=== PATIENT | female | born 1930 | race Caucasian/White ===

== ENCOUNTER 2016-11-05 09:18 | Emergency (ER) | payer MEDICARE, BC ==
[2016-11-05] MEDS ORDERED: DEXAMETHASONE SOD PHOSPHATE 4 MG/ML 1 ML VIAL IVP STA (10:57)
--- NOTE | 2016-11-05 10:58 | ED ---
ENT HPI - General Chief complaint: ENT Stated complaint: throat pain Time Seen by Provider: 11/05/16 10:30 Source: patient Mode of arrival: ambulatory Limitations: no limitations - History of Present Illness Initial comments: Patient is an 85 old female presenting with sore throat times one day. Patient' s been trying salt gargles and NyQuil without relief. Patient admits to sick contacts in family. Patient denies fever or chills. Patient admits to postnasal drip. Patient denies change in voice or trouble tolerating secretions or trouble swallowing. Patient is leaving for vacation over the next 3 days and wants to be checked out before she goes to a location without physicians. - Related Data Home Medications Medication Instructions Recorded Confirmed Levothyroxine Sodium 50 mcg PO DAILY 02/05/15 11/05/16 [Levothyroxine Sodium] Loratadine [Claritin] 10 mg PO DAILY 02/05/15 11/05/16 amLODIPine BES/OLMESARTAN MED 1 tab PO DAILY 02/05/15 11/05/16 [Naomy 5-20 mg Tablet] Meloxicam [Mobic] 7.5 mg PO DAILY 11/05/16 11/05/16 Allergies Allergy/AdvReac Type Severity Reaction Status Date / Time aspirin Allergy Rash/Hives Verified 11/05/16 10:05 Penicillins Allergy Rash/Hives Verified 11/05/16 10:05 Review of Systems ROS Statement: Those systems with pertinent positive or pertinent negative responses have been documented in the HPI. Constitutional: No fever and no chills. HENT: No congestion, no rhinorrhea and +sore throat. Eyes: No discharge and no redness. Respiratory: No cough and no shortness of breath. Cardiovascular: No chest pain and no palpitations. Gastrointestinal: No nausea, no vomiting, no abdominal pain and no diarrhea. Genitourinary: No dysuria and no hematuria. Musculoskeletal: No back pain and no arthralgias. Skin: No pallor and no rash. Neurological: No dizziness and No headaches. ROS Other: All systems not noted in ROS Statement are negative. Past Medical History Past Medical History: Hypertension Additional Past Medical History / Comment(s): breast cancer History of Any Multi-Drug Resistant Organisms: None Reported Past Surgical History: Breast Surgery Additional Past Surgical History / Comment(s): mastectomy Past Psychological History: No Psychological Hx Reported Smoking Status: Never smoker Past Alcohol Use History: None Reported Past Drug Use History: None Reported General Exam - General Exam Comments Initial Comments: Constitutional: Patient appears well-developed and well-nourished. No distress. Tolerating secretions. Head: Normocephalic and atraumatic. Eyes: Conjunctivae and EOM are normal. Right eye exhibits no discharge. Left eye exhibits no discharge. No scleral icterus. Neck: Normal range of motion. Neck supple. No cervical lymphadenopathy. Throat: Erythematous posterior pharynx without asymmetry. Uvula midline. Normal phonation of voice. Cardiovascular: Normal rate and regular rhythm. No murmur heard. Pulmonary/Chest: Effort normal and breath sounds normal. No respiratory distress. No wheezes. Abdominal: Soft. No distension. There is no tenderness. There is no rebound and no guarding. Musculoskeletal: Normal range of motion. No edema or tenderness. Neurological: Patient alert and oriented to person, place, and time. Skin: Skin is warm and dry. Not diaphoretic. Nursing notes and vitals reviewed. Limitations: no limitations Course Vital Signs 11/05/16 09:19 Temperature 98.0 F Pulse Rate 88 Respiratory 20 Rate Blood Pressure 152/82 O2 Sat by Pulse 98 Oximetry - Reevaluation(s) Reevaluation #1: 11/05/16 11:00 Patient was offered throat culture for which she is refusing as she does not like the feeling. Patient is agreeable to dexamethasone IM to help with her sore throat. Medical Decision Making - Medical Decision Making Patient's an 85-year-old female presenting with 1 day of sore throat. Exam shows an erythematous posterior pharynx. Patient refusing strep testing. She will be treated with dexamethasone IM and follow-up with her PCP as soon as possible for reevaluation. Prior to discharge, patient was resting comfortably in bed. Course of stay improved and stable for outpatient management. Denies pain. Discussed physical exam with patient. Questions answered and patient is agreeable to discharge with close follow up with Primary Care Physician. Instructed to return to Emergency Department if symptoms worsen. Disposition Clinical Impression: Sore throat Disposition: HOME SELF-CARE Condition: Good Instructions: Strep Throat (ED) Referrals: Shravan Foss MD [Primary Care Provider] - 1-2 days
[2016-11-05 11:12] VITALS: BP 140/79; PULSE 95; RESP 15; TEMP 97.7
[2016-11-05] MEDS ORDERED: DEXAMETHASONE SOD PHOSPHATE 10 MG/ML 1 ML VIAL IM STA (11:30)
== END 2016-11-05 11:34 | disposition home or self-care (01) ==
LOC: EC 09:18
DX: J02.9 Acute pharyngitis, unspecified (principal); I10 Essential (primary) hypertension; Z85.3 Personal history of malignant neoplasm of breast; Z88.0 Allergy status to penicillin; Z88.6 Allergy status to analgesic agent; Z79.1 Long term (current) use of non-steroidal anti-inflammatories (NSAID); Z79.899 Other long term (current) drug therapy
CPT/HCPCS: 99282; 96372; J1100

== ENCOUNTER 2016-12-30 09:19 | Emergency (ER) | payer MEDICARE, BC ==
[2016-12-30 09:26] VITALS: BP 142/68; PULSE 92; RESP 18; TEMP 97.2
--- NOTE | 2016-12-30 09:44 | ED ---
General Adult HPI - General Chief complaint: Eye Problems Stated complaint: eye problem Time Seen by Provider: 12/30/16 09:27 Source: patient, RN notes reviewed Mode of arrival: ambulatory Limitations: no limitations - History of Present Illness Initial comments: Patient 85-year-old female who presents emergency room today with a chief complaint of subconjunctival hemorrhage to the left eye. She states woke up today noticed the blood on the lateral aspect. She states she had this once in the past. She states was told it was due to her ALLERGIES. She states she stopped taking her ALLERGY medication she didn't think she didn't take it anymore. Patient denies any visual changes. She states she can feel some little bit of discomfort to the left upper portion. Denies any other complaints or symptoms. Denies any injury or trauma. Patient denies any recent fever, chills, shortness of breath, chest pain, back pain, abdominal pain, nausea or vomiting, numbness or tingling, dysuria or hematuria, constipation or diarrhea, headaches or visual changes, or any other complaints. - Related Data Home Medications Medication Instructions Recorded Confirmed Levothyroxine Sodium 50 mcg PO DAILY 02/05/15 11/05/16 [Levothyroxine Sodium] Loratadine [Claritin] 10 mg PO DAILY 02/05/15 11/05/16 amLODIPine BES/OLMESARTAN MED 1 tab PO DAILY 02/05/15 11/05/16 [Naomy 5-20 mg Tablet] Meloxicam [Mobic] 7.5 mg PO DAILY 11/05/16 11/05/16 Allergies Allergy/AdvReac Type Severity Reaction Status Date / Time aspirin Allergy Rash/Hives Verified 12/30/16 09:25 Penicillins Allergy Rash/Hives Verified 12/30/16 09:25 Review of Systems ROS Statement: Those systems with pertinent positive or pertinent negative responses have been documented in the HPI. ROS Other: All systems not noted in ROS Statement are negative. Past Medical History Past Medical History: Hypertension, Thyroid Disorder Additional Past Medical History / Comment(s): breast cancer History of Any Multi-Drug Resistant Organisms: None Reported Past Surgical History: Breast Surgery, Joint Replacement Additional Past Surgical History / Comment(s): mastectomy thyroidectomy knee replacement Past Psychological History: No Psychological Hx Reported Smoking Status: Never smoker Past Alcohol Use History: None Reported Past Drug Use History: None Reported General Exam - General Exam Comments Initial Comments: General: The patient is awake and alert, in no distress, and does not appear acutely ill. Eye: Pupils are equal, round and reactive to light, extra-ocular movements are intact. No nystagmus. Right conjunctiva clear. Left conjunctiva does have subconjunctival hemorrhage on the lateral aspect. Small clot seen in the upper portion. Ears, nose, mouth and throat: There are moist mucous membranes and no oral lesions. Neck: The neck is supple, there is no tenderness or JVD. Cardiovascular: There is a regular rate and rhythm. No murmur, rub or gallop is appreciated. Respiratory: Lungs are clear to auscultation, respirations are non-labored, breath sounds are equal. No wheezes, stridor, rales, or rhonchi. Musculoskeletal: Normal ROM, no tenderness. Strength 5/5. Sensation intact. Pulses equal bilaterally 2+. Neurological: A&O x 3. CN II-XII intact, There are no obvious motor or sensory deficits. Coordination appears grossly intact. Speech is normal. Skin: Skin is warm and dry and no rashes or lesions are noted. Psychiatric: Cooperative, appropriate mood & affect, normal judgment. Limitations: no limitations Course Vital Signs 12/30/16 09:23 Temperature 97.2 F L Pulse Rate 92 Respiratory 18 Rate Blood Pressure 142/68 O2 Sat by Pulse 96 Oximetry Medical Decision Making - Medical Decision Making Patient's pressure in the left eye was checked in the emergency room is 12 in the left eye. She does have subconjunctival hemorrhage on the left. Visual acuity chart by nursing staff and is normal for the patient. She denies any changes. Extraocular eye movements are intact and no pain. Patient denies any injury or trauma. Patient will be discharged home advised follow-up with her circuit court judge over the next 2 days return here to emergency room if any symptoms increase or worsen or for any other concerns. Disposition Clinical Impression: Subconjunctival hemorrhage of left eye Disposition: HOME SELF-CARE Condition: Good Instructions: Subconjunctival Hemorrhage (ED) Additional Instructions: Please follow-up with circuit court judge as discussed. Please return to emergency room if the symptoms increase or worsen or for any other concerns. Referrals: Shravan Foss MD [Primary Care Provider] - 1-2 days Garland Wayne MD [STAFF PHYSICIAN] - 1-2 days Time of Disposition: 09:43
== END 2016-12-30 09:50 | disposition home or self-care (01) ==
LOC: EC 09:19
DX: H11.32 Conjunctival hemorrhage, left eye (principal); I10 Essential (primary) hypertension; E07.9 Disorder of thyroid, unspecified; Z79.1 Long term (current) use of non-steroidal anti-inflammatories (NSAID); Z79.899 Other long term (current) drug therapy; Z88.0 Allergy status to penicillin; Z88.6 Allergy status to analgesic agent; Z85.3 Personal history of malignant neoplasm of breast; Z90.10 Acquired absence of unspecified breast and nipple
CPT/HCPCS: 99283

== ENCOUNTER → 2017-01-05 | Outpatient (CLI) | payer BC, MEDICARE ==
[2017-01-05 08:48] LABS: Basophils # (A) 0.1 k/uL (0-0.2); Basophils % (A) 1 %; CH 29.8; CHCM 33.2; Eosinophils # (A) 0.9 k/uL (0-0.7); Eosinophils % (A) 15 %; HCT 43.2 % (34.0-46.0); HDW 2.39; HGB 13.8 gm/dL (11.4-16.0); Luc # (Auto) 0.14; Luc % (Auto) 2; Lymphocytes # (A) 1.3 k/uL (1.0-4.8); Lymphocytes % (A) 22 %; MCHC 32.1 g/dL (31.0-37.0); MCV 90.4 fL (80.0-100.0); Mean Platelet Volume 8.3; Monocytes # (A) 0.3 k/uL (0-1.0); Monocytes % (A) 5 %; Neutrophils # (A) 3.3 k/uL (1.3-7.7); Neutrophils % (A) 55 %; RBC 4.78 m/uL (3.80-5.40); RDW 14.9 % (11.5-15.5); WBC (Perox) 6.08
[2017-01-05 09:03] LABS: Anion Gap 10 mmol/L; Blood Urea Nitrogen 17 mg/dL (7-17); Calcium 8.8 mg/dL (8.4-10.2); Carbon Dioxide 26 mmol/L (22-30); Chloride 105 mmol/L (98-107); Cholesterol 267 mg/dL (<200); Glucose 84 mg/dL (74-99); HDL Cholesterol 64 mg/dL (40-60); Non-African American GFR(MDRD) >60 (>60 ml/min/1.73 sqM); Potassium 4.4 mmol/L (3.5-5.1); Sodium 141 mmol/L (137-145)
== END | disposition home or self-care (01) ==
LOC: LABWHC1 08:24
PROVIDERS: ATTEND Internal Medicine Geriatric Medicine
DX: C50.919 Malignant neoplasm of unspecified site of unspecified female breast (principal); E78.00 Pure hypercholesterolemia, unspecified; E03.9 Hypothyroidism, unspecified
CPT/HCPCS: 36415; 80048; 80061; 84439; 84443; 85025

== ENCOUNTER 2017-02-25 14:33 | Emergency (ER) | payer BC ==
[2017-02-25 14:46] VITALS: BP 146/76; PULSE 116; RESP 18; TEMP 98
[2017-02-25] MEDS ORDERED: MORPHINE SULFATE 4 MG/ML SYRINGE IV STA (14:55)
[2017-02-25] MEDS ORDERED: ONDANSETRON 4 MG/2 ML VIAL IVP STA (14:55)
[2017-02-25] MEDS ORDERED: SODIUM CHLORIDE 0.9% 1,000 ML IV STA (14:55)
[2017-02-25] MEDS ORDERED: PANTOPRAZOLE 40 MG/10 ML VIAL IVP STA (14:55)
[2017-02-25] MEDS ORDERED: LORazepam 2 MG/ML INJ IV STA (14:56)
[2017-02-25 15:26] LABS: Basophils % (A) 1 %; CH 28.4; CHCM 31.9; Eosinophils # (A) 0.1 k/uL (0-0.7); Eosinophils % (A) 3 %; HCT 40.7 % (34.0-46.0); HDW 2.62; HGB 13.2 gm/dL (11.4-16.0); Hypochromasia Slight; Luc # (Auto) 0.17; Luc % (Auto) 3; Lymphocytes # (A) 1.2 k/uL (1.0-4.8); Lymphocytes % (A) 21 %; MCHC 32.5 g/dL (31.0-37.0); MCV 89.4 fL (80.0-100.0); Mean Platelet Volume 7.5; Monocytes # (A) 0.4 k/uL (0-1.0); Monocytes % (A) 7 %; Neutrophils # (A) 3.8 k/uL (1.3-7.7); Neutrophils % (A) 67 %; RBC 4.55 m/uL (3.80-5.40); RDW 13.7 % (11.5-15.5); WBC 5.7 k/uL (3.8-10.6); WBC (Perox) 5.83
[2017-02-25 15:34] LABS: Appearance,Urine Clear (Clear); Bilirubin,Urine Negative (Negative); Glucose,Urine (UA) Negative (Negative); Ketones,Urine Negative (Negative); Leukocyte Esterase,Urine Small (Negative); Mucus,Urine Rare /hpf; Nitrite,Urine Negative (Negative); Particle Count 1537; Protein,Urine Negative (Negative); RBC,Urine 3 /hpf (0-5); Specific Gravity,Urine 1.013 (1.001-1.035); Squamous Epithelial Cell,Urine <1 /hpf (0-4); UA Billing (MACRO vs. MICRO) MICRO; Urobilinogen,Urine <2.0 mg/dL (<2.0); WBC,Urine 4 /hpf (0-5)
[2017-02-25 15:35] LABS: ALT 35 U/L (9-52); AST 28 U/L (14-36); Alkaline Phosphatase 82 U/L (38-126); Amylase 40 U/L (30-110); Anion Gap 12 mmol/L; Blood Urea Nitrogen 13 mg/dL (7-17); Calcium 9.5 mg/dL (8.4-10.2); Carbon Dioxide 22 mmol/L (22-30); Chloride 107 mmol/L (98-107); Glucose 129 mg/dL (74-99); Non-African American GFR(MDRD) >60 (>60 ml/min/1.73 sqM); Sodium 141 mmol/L (137-145); Total Bilirubin 0.3 mg/dL (0.2-1.3); Total Protein 7.1 g/dL (6.3-8.2)
--- NOTE | 2017-02-25 15:49 | ED ---
General Adult HPI - General Chief complaint: Nausea/Vomiting/Diarrhea Stated complaint: High BP Time Seen by Provider: 02/25/17 14:49 Source: patient, RN notes reviewed, old records reviewed Mode of arrival: wheelchair Limitations: no limitations - History of Present Illness Initial comments: This is a 86-year-old female here with nonspecific abdominal pain and nausea. Anxiety. His only recent medical history consists of abdominal pain that she's been suffering with that she had a right knee surgery. Patient denies chest pain no shortness of breath. Patient was taking high doses of pain control for her right knee which has been slowly weaned off. Patient thinks the medication may be causing an issue with her pain. Has been persistent for a couple weeks now patient is at this point just tired of dealing with that she developed resolved by now. She is unable to take significant pain medication at home she is does not like taking pain medication. Denies fevers. No known no vomiting. No history of ulcer disease. - Related Data Home Medications Medication Instructions Recorded Confirmed Loratadine [Claritin] 10 mg PO DAILY 02/05/15 02/25/17 amLODIPine BES/OLMESARTAN MED 1 tab PO HS 02/05/15 02/25/17 [Naomy 5-20 mg Tablet] Meloxicam [Mobic] 7.5 mg PO DAILY 11/05/16 02/25/17 Levothyroxine Sodium [Synthroid] 75 mcg PO DAILY 02/25/17 02/25/17 Allergies Allergy/AdvReac Type Severity Reaction Status Date / Time aspirin Allergy Rash/Hives Verified 02/25/17 14:47 Penicillins Allergy Rash/Hives Verified 02/25/17 14:47 Review of Systems ROS Statement: Those systems with pertinent positive or pertinent negative responses have been documented in the HPI. ROS Other: All systems not noted in ROS Statement are negative. Past Medical History Past Medical History: Cancer, Hypertension, Thyroid Disorder Additional Past Medical History / Comment(s): breast cancer. No BP on left side History of Any Multi-Drug Resistant Organisms: None Reported Past Surgical History: Breast Surgery, Joint Replacement Additional Past Surgical History / Comment(s): mastectomy thyroidectomy knee replacement Past Psychological History: No Psychological Hx Reported Smoking Status: Never smoker Past Alcohol Use History: None Reported Past Drug Use History: None Reported General Exam Limitations: no limitations General appearance: alert, in no apparent distress Head exam: Present: atraumatic, normocephalic, normal inspection Eye exam: Present: normal appearance, PERRL, EOMI. Absent: scleral icterus, conjunctival injection, periorbital swelling ENT exam: Present: normal exam, mucous membranes moist Neck exam: Present: normal inspection. Absent: tenderness, meningismus, lymphadenopathy Respiratory exam: Present: normal lung sounds bilaterally. Absent: respiratory distress, wheezes, rales, rhonchi, stridor Cardiovascular Exam: Present: regular rate, normal rhythm, normal heart sounds. Absent: systolic murmur, diastolic murmur, rubs, gallop, clicks GI/Abdominal exam: Present: soft, normal bowel sounds. Absent: distended, tenderness, guarding, rebound, rigid Extremities exam: Present: normal inspection, full ROM, normal capillary refill. Absent: tenderness, pedal edema, joint swelling, calf tenderness Back exam: Present: normal inspection Neurological exam: Present: alert, oriented X3, CN II-XII intact Psychiatric exam: Present: normal affect, normal mood Skin exam: Present: warm, dry, intact, normal color. Absent: rash Course Vital Signs 02/25/17 14:44 Temperature 98 F Pulse Rate 116 H Respiratory 18 Rate Blood Pressure 146/76 O2 Sat by Pulse 97 Oximetry - Reevaluation(s) Reevaluation #1: 02/25/17 15:48 Symptoms at this point are much improved Medical Decision Making - Medical Decision Making 86 female to the ER with predominant anxiety, abdominal pain. Patient actually lab work is normal. Symptoms have been persistent ever since surgery but no shortness of breath or chest pain. Patient symptoms are improved here in the emergency room with anxiolysis, patient can be discharged home - Lab Data Result diagrams: 02/25/17 15:10 02/25/17 15:10 Lab Results 02/25/17 02/25/17 02/25/17 Range/Units 15:10 15:10 15:10 WBC 5.7 (3.8-10.6) k/uL RBC 4.55 (3.80-5.40) m/uL Hgb 13.2 (11.4-16.0) gm/dL Hct 40.7 (34.0-46.0) % MCV 89.4 (80.0-100.0) fL MCH 29.0 (25.0-35.0) pg MCHC 32.5 (31.0-37.0) g/dL RDW 13.7 (11.5-15.5) % Plt Count 273 (150-450) k/uL Neutrophils % 67 % Lymphocytes % 21 % Monocytes % 7 % Eosinophils % 3 % Basophils % 1 % Neutrophils # 3.8 (1.3-7.7) k/uL Lymphocytes # 1.2 (1.0-4.8) k/uL Monocytes # 0.4 (0-1.0) k/uL Eosinophils # 0.1 (0-0.7) k/uL Basophils # 0.0 (0-0.2) k/uL Hypochromasia Slight Sodium 141 (137-145) mmol/L Potassium 4.0 (3.5-5.1) mmol/L Chloride 107 (98-107) mmol/L Carbon Dioxide 22 (22-30) mmol/L Anion Gap 12 mmol/L BUN 13 (7-17) mg/dL Creatinine 0.66 (0.52-1.04) mg/dL Est GFR (MDRD) Af Amer >60 (>60 ml/min/1.73 sqM) Est GFR (MDRD) Non-Af >60 (>60 ml/min/1.73 sqM) Glucose 129 H (74-99) mg/dL Plasma Lactic Acid Severiano 1.3 (0.7-2.0) mmol/L Calcium 9.5 (8.4-10.2) mg/dL Total Bilirubin 0.3 (0.2-1.3) mg/dL AST 28 (14-36) U/L ALT 35 (9-52) U/L Alkaline Phosphatase 82 (38-126) U/L Total Protein 7.1 (6.3-8.2) g/dL Albumin 4.4 (3.5-5.0) g/dL Amylase 40 (30-110) U/L Lipase 61 (23-300) U/L Urine Color Urine Appearance (Clear) Urine pH (5.0-8.0) Ur Specific [place] (1.001-1.035) Urine Protein (Negative) Urine Glucose (UA) (Negative) Urine Ketones (Negative) Urine Blood (Negative) Urine Nitrite (Negative) Urine Bilirubin (Negative) Urine Urobilinogen (<2.0) mg/dL Ur Leukocyte Esterase (Negative) Urine RBC (0-5) /hpf Urine WBC (0-5) /hpf Ur Squamous Epith Cells (0-4) /hpf Urine Mucus (None) /hpf 02/25/17 Range/Units 15:20 WBC (3.8-10.6) k/uL RBC (3.80-5.40) m/uL Hgb (11.4-16.0) gm/dL Hct (34.0-46.0) % MCV (80.0-100.0) fL MCH (25.0-35.0) pg MCHC (31.0-37.0) g/dL RDW (11.5-15.5) % Plt Count (150-450) k/uL Neutrophils % % Lymphocytes % % Monocytes % % Eosinophils % % Basophils % % Neutrophils # (1.3-7.7) k/uL Lymphocytes # (1.0-4.8) k/uL Monocytes # (0-1.0) k/uL Eosinophils # (0-0.7) k/uL Basophils # (0-0.2) k/uL Hypochromasia Sodium (137-145) mmol/L Potassium (3.5-5.1) mmol/L Chloride (98-107) mmol/L Carbon Dioxide (22-30) mmol/L Anion Gap mmol/L BUN (7-17) mg/dL Creatinine (0.52-1.04) mg/dL Est GFR (MDRD) Af Amer (>60 ml/min/1.73 sqM) Est GFR (MDRD) Non-Af (>60 ml/min/1.73 sqM) Glucose (74-99) mg/dL Plasma Lactic Acid Severiano (0.7-2.0) mmol/L Calcium (8.4-10.2) mg/dL Total Bilirubin (0.2-1.3) mg/dL AST (14-36) U/L ALT (9-52) U/L Alkaline Phosphatase (38-126) U/L Total Protein (6.3-8.2) g/dL Albumin (3.5-5.0) g/dL Amylase (30-110) U/L Lipase (23-300) U/L Urine Color Yellow Urine Appearance Clear (Clear) Urine pH 6.0 (5.0-8.0) Ur Specific [place] 1.013 (1.001-1.035) Urine Protein Negative (Negative) Urine Glucose (UA) Negative (Negative) Urine Ketones Negative (Negative) Urine Blood Small H (Negative) Urine Nitrite Negative (Negative) Urine Bilirubin Negative (Negative) Urine Urobilinogen <2.0 (<2.0) mg/dL Ur Leukocyte Esterase Small H (Negative) Urine RBC 3 (0-5) /hpf Urine WBC 4 (0-5) /hpf Ur Squamous Epith Cells <1 (0-4) /hpf Urine Mucus Rare H (None) /hpf - Radiology Data Radiology results: report reviewed (X-ray abdominal series and chest is negative for acute disease), image reviewed Disposition Clinical Impression: Anxiety, Abdominal pain Disposition: TRANSFER TO PSYCH HOSP/UNIT Condition: Good Instructions: Abdominal Pain (ED) Referrals: Shravan Foss MD [Primary Care Provider] - 1-2 days
--- NOTE | 2017-02-25 15:51 | XR ---
EXAMINATION TYPE: XR abdomen acute w cxr DATE OF EXAM: 02/25/2017 COMPARISON: NONE HISTORY: Abdominal pain TECHNIQUE: 3 views FINDINGS: There is no heart failure nor confluent pneumonic infiltrate. There is slight coarsening of markings at the lung bases. There is scoliotic deformity in the thoracic and lumbar spine. There is no sign of intestinal obstruction or pneumoperitoneum. Fecal pattern is normal. There are no pathologic calcifications over the kidneys. IMPRESSION: Mild fibrotic changes at the lung bases. No heart failure. Scoliotic deformity. Nonacute abdomen.
== END 2017-02-25 16:11 | disposition home or self-care (01) ==
LOC: EC 14:33
DX: R10.9 Unspecified abdominal pain (principal); F41.9 Anxiety disorder, unspecified; R11.2 Nausea with vomiting, unspecified; R19.7 Diarrhea, unspecified; I10 Essential (primary) hypertension; E07.9 Disorder of thyroid, unspecified; Z79.1 Long term (current) use of non-steroidal anti-inflammatories (NSAID); Z79.899 Other long term (current) drug therapy; Z88.0 Allergy status to penicillin; Z88.6 Allergy status to analgesic agent; Z85.3 Personal history of malignant neoplasm of breast; Z90.10 Acquired absence of unspecified breast and nipple
CPT/HCPCS: 96375 ×4; 96361 ×2; 96374 ×2; 99284 ×2; 36415; 80053; 82150; 83605; 83690; 85025; 81001; 87086; 74022; J2060; J2270; J2405; C9113

== ENCOUNTER 2017-03-04 04:21 | Emergency (ER) | payer BC, MEDICARE ==
[2017-03-04 04:28] VITALS: RESP 16
[2017-03-04] MEDS ORDERED: SODIUM CHLORIDE 0.9% 1,000 ML IV STA (04:32)
[2017-03-04] MEDS ORDERED: DIPHENOX-ATROP 2.5-0.025 MG 1 EACH TAB PO STA (04:32)
--- NOTE | 2017-03-04 04:36 | ED ---
General Adult HPI - General Chief complaint: Abdominal Pain Stated complaint: Abdominal Pain Time Seen by Provider: 03/04/17 04:25 Source: patient, RN notes reviewed Mode of arrival: wheelchair Limitations: no limitations - History of Present Illness Initial comments: This is an 86-year-old female preand continues to have it currently. Patient states she also has abdominal cramping. Patient states she quit taking oxycodone cold turkey last Sunday after having been on it for quite a while. Patient states after that she had diarrhea and was in the hospital on Sunday. Patient states since then she has been feeling a little bit better and not much diarrhea but yesterday it started up again at 10 PM. Patient denies any fever chills. Patient denies nausea or vomiting. Patient denies chest pain palpitations difficulty breathing or shortness of breath. - Related Data Home Medications Medication Instructions Recorded Confirmed Loratadine [Claritin] 10 mg PO DAILY 02/05/15 02/25/17 amLODIPine BES/OLMESARTAN MED 1 tab PO HS 02/05/15 02/25/17 [Naomy 5-20 mg Tablet] Meloxicam [Mobic] 7.5 mg PO DAILY 11/05/16 02/25/17 Levothyroxine Sodium [Synthroid] 75 mcg PO DAILY 02/25/17 02/25/17 Previous Rx's Medication Instructions Recorded Diazepam [Valium] 5 mg PO TID PRN #10 tab 02/25/17 Ondansetron [Zofran] 4 mg PO Q8HR PRN #30 tab 02/25/17 traMADol HCL [Ultram] 50 mg PO Q6HR PRN #30 tab 02/25/17 Allergies Allergy/AdvReac Type Severity Reaction Status Date / Time aspirin Allergy Rash/Hives Verified 03/04/17 04:28 Penicillins Allergy Rash/Hives Verified 03/04/17 04:28 Review of Systems ROS Statement: Those systems with pertinent positive or pertinent negative responses have been documented in the HPI. ROS Other: All systems not noted in ROS Statement are negative. Past Medical History Past Medical History: Cancer, Hypertension, Thyroid Disorder Additional Past Medical History / Comment(s): breast cancer. No BP on left side History of Any Multi-Drug Resistant Organisms: None Reported Past Surgical History: Breast Surgery, Joint Replacement Additional Past Surgical History / Comment(s): mastectomy thyroidectomy bilateral knee replacement Past Psychological History: No Psychological Hx Reported Smoking Status: Never smoker Past Alcohol Use History: None Reported Past Drug Use History: None Reported General Exam - General Exam Comments Initial Comments: GENERAL: Patient is well-developed and well-nourished. Patient is nontoxic and well- hydrated and is in mild distress. ENT: Neck is soft and supple. No significant lymphadenopathy is noted. Oropharynx is clear. Moist mucous membranes. Neck has full range of motion without eliciting any pain. EYES: The sclera were anicteric and conjunctiva were pink and moist. Extraocular movements were intact and pupils were equal round and reactive to light. Eyelids were unremarkable. PULMONARY: Unlabored respirations. Good breath sounds bilaterally. No audible rales rhonchi or wheezing was noted. CARDIOVASCULAR: There is a regular rate and rhythm without any murmurs gallops or rubs. ABDOMEN: Soft and nontender with normal bowel sounds. No palpable organomegaly was noted. There is no palpable pulsatile mass. SKIN: Skin is clear with no lesions or rashes and otherwise unremarkable. NEUROLOGIC: Patient is alert and oriented x3. Cranial nerves II through XII are grossly intact. Motor and sensory are also intact. Normal speech, volume and content. Symmetrical smile. MUSCULOSKELETAL: Normal extremities with adequate strength and full range of motion. LYMPHATICS: No significant lymphadenopathy is noted PSYCHIATRIC: Normal psychiatric evaluation. Normal interpersonal interactions appears functionally intact in deals appropriately with others. No signs of depression. No signs of anxiety. Limitations: no limitations Course Vital Signs 03/04/17 04:25 Temperature 99 F Pulse Rate 105 H Respiratory 16 Rate Blood Pressure 172/75 O2 Sat by Pulse 98 Oximetry Medical Decision Making - Medical Decision Making Patient has had no diarrhea while being in the emergency department. Patient states she feels considerably better and still has some abdominal cramping - Lab Data Result diagrams: 03/04/17 04:30 03/04/17 04:30 Lab Results 03/04/17 03/04/17 03/04/17 Range/Units 04:30 04:30 05:20 WBC 8.4 (3.8-10.6) k/uL RBC 4.67 (3.80-5.40) m/uL Hgb 13.0 (11.4-16.0) gm/dL Hct 40.8 (34.0-46.0) % MCV 87.4 (80.0-100.0) fL MCH 27.9 (25.0-35.0) pg MCHC 31.9 (31.0-37.0) g/dL RDW 13.3 (11.5-15.5) % Plt Count 260 (150-450) k/uL Neutrophils % 72 % Lymphocytes % 16 % Monocytes % 5 % Eosinophils % 4 % Basophils % 0 % Neutrophils # 6.1 (1.3-7.7) k/uL Lymphocytes # 1.4 (1.0-4.8) k/uL Monocytes # 0.5 (0-1.0) k/uL Eosinophils # 0.3 (0-0.7) k/uL Basophils # 0.0 (0-0.2) k/uL Sodium 139 (137-145) mmol/L Potassium 4.3 (3.5-5.1) mmol/L Chloride 107 (98-107) mmol/L Carbon Dioxide 19 L (22-30) mmol/L Anion Gap 13 mmol/L BUN 17 (7-17) mg/dL Creatinine 0.60 (0.52-1.04) mg/dL Est GFR (MDRD) Af Amer >60 (>60 ml/min/1.73 sqM) Est GFR (MDRD) Non-Af >60 (>60 ml/min/1.73 sqM) Glucose 124 H (74-99) mg/dL Calcium 9.3 (8.4-10.2) mg/dL Total Bilirubin 0.4 (0.2-1.3) mg/dL AST 27 (14-36) U/L ALT 36 (9-52) U/L Alkaline Phosphatase 106 (38-126) U/L Total Protein 6.7 (6.3-8.2) g/dL Albumin 4.2 (3.5-5.0) g/dL Amylase 75 (30-110) U/L Lipase 131 (23-300) U/L Urine Color Colorless Urine Appearance Clear (Clear) Urine pH 6.0 (5.0-8.0) Ur Specific [place] 1.004 (1.001-1.035) Urine Protein Negative (Negative) Urine Glucose (UA) Negative (Negative) Urine Ketones Negative (Negative) Urine Blood Negative (Negative) Urine Nitrite Negative (Negative) Urine Bilirubin Negative (Negative) Urine Urobilinogen <2.0 (<2.0) mg/dL Ur Leukocyte Esterase Negative (Negative) Disposition Clinical Impression: Diarrhea, Abdominal cramping Disposition: HOME SELF-CARE Condition: Good Instructions: Acute Diarrhea (ED) Referrals: Shravan Foss MD [Primary Care Provider] - 1-2 days Time of Disposition: 06:01
[2017-03-04 04:44] LABS: Basophils % (A) 0 %; CH 28.1; CHCM 32.3; Eosinophils # (A) 0.3 k/uL (0-0.7); Eosinophils % (A) 4 %; HCT 40.8 % (34.0-46.0); HDW 2.67; Luc # (Auto) 0.23; Luc % (Auto) 3; Lymphocytes # (A) 1.4 k/uL (1.0-4.8); Lymphocytes % (A) 16 %; MCH 27.9 pg (25.0-35.0); MCHC 31.9 g/dL (31.0-37.0); MCV 87.4 fL (80.0-100.0); Mean Platelet Volume 7.6; Monocytes # (A) 0.5 k/uL (0-1.0); Monocytes % (A) 5 %; Neutrophils # (A) 6.1 k/uL (1.3-7.7); Neutrophils % (A) 72 %; RBC 4.67 m/uL (3.80-5.40); RDW 13.3 % (11.5-15.5); WBC 8.4 k/uL (3.8-10.6); WBC (Perox) 8.15
[2017-03-04 05:00] LABS: ALT 36 U/L (9-52); AST 27 U/L (14-36); Alkaline Phosphatase 106 U/L (38-126); Amylase 75 U/L (30-110); Anion Gap 13 mmol/L; Blood Urea Nitrogen 17 mg/dL (7-17); Calcium 9.3 mg/dL (8.4-10.2); Carbon Dioxide 19 mmol/L (22-30); Chloride 107 mmol/L (98-107); Glucose 124 mg/dL (74-99); Non-African American GFR(MDRD) >60 (>60 ml/min/1.73 sqM); Potassium 4.3 mmol/L (3.5-5.1); Sodium 139 mmol/L (137-145); Total Bilirubin 0.4 mg/dL (0.2-1.3); Total Protein 6.7 g/dL (6.3-8.2)
--- NOTE | 2017-03-04 05:27 | XR ---
EXAM: XR Abdomen Complete, 2 or More Views CLINICAL HISTORY: Reason: abdominal pain TECHNIQUE: Frontal view of the abdomen/pelvis with upright view of the abdomen. COMPARISON: 02/25/17 FINDINGS: Lower thorax: Probable bibasilar atelectasis. Intraperitoneal space: No free air on the upright view. Gastrointestinal tract: Paucity of bowel gas pattern. Fluid-filled dilated small bowel loops difficult to exclude. Air in the rectosigmoid region. Bones/joints: Scoliosis and degenerative changes in the visualized thoracic and lumbar spine, unchanged. IMPRESSION: No definite bowel obstruction or free air Overall paucity of bowel gas, nonspecific No significant change
[2017-03-04 05:46] LABS: Appearance,Urine Clear (Clear); Bilirubin,Urine Negative (Negative); Glucose,Urine (UA) Negative (Negative); Ketones,Urine Negative (Negative); Leukocyte Esterase,Urine Negative (Negative); Nitrite,Urine Negative (Negative); Protein,Urine Negative (Negative); Specific Gravity,Urine 1.004 (1.001-1.035); UA Billing (MACRO vs. MICRO) CHEM; Urobilinogen,Urine <2.0 mg/dL (<2.0)
[2017-03-04] MEDS ORDERED: DICYCLOMINE 10 MG/ML 2 ML AMP IM STA (06:00)
[2017-03-04] MEDS ORDERED: DIPHENOX-ATROP STARTER PACK 8 TAB BTL PO STA (06:01)
[2017-03-04 06:13] VITALS: BP 118/79; PULSE 66; TEMP 97.9
== END 2017-03-04 06:12 | disposition home or self-care (01) ==
LOC: EC 04:21
DX: R10.9 Unspecified abdominal pain (principal); R19.7 Diarrhea, unspecified; I10 Essential (primary) hypertension; E89.0 Postprocedural hypothyroidism; Z85.3 Personal history of malignant neoplasm of breast; Z88.0 Allergy status to penicillin; Z88.6 Allergy status to analgesic agent; Z79.899 Other long term (current) drug therapy
CPT/HCPCS: 99284 ×2; 96360 ×2; 96372 ×2; 36415; 80053; 82150; 83690; 85025; 81003; 74000; J0500

== ENCOUNTER 2017-10-19 19:51 | Emergency (ER) | payer MEDICARE, BC ==
--- NOTE | 2017-10-19 20:56 | XR ---
EXAMINATION TYPE: XR chest 2V DATE OF EXAM: 10/19/2017 COMPARISON: Chest x-ray February 25, 2017 HISTORY: Cough and sore throat and congestion. TECHNIQUE: Frontal and lateral views of the chest are obtained. FINDINGS: There is some chronic parenchymal change without suspicious focal air space opacity, pleur al effusion, or pneumothorax seen. The cardiac silhouette size remains within normal limits with ath erosclerotic and ectatic aorta. The osseous structures remain demineralized. Underlying S-shaped sc oliosis is redemonstrated IMPRESSION: Chronic changes without acute pulmonary process.
--- NOTE | 2017-10-19 21:42 | ED ---
URI HPI - General Chief Complaint: Upper Respiratory Infection Stated Complaint: Chest Congestion Time Seen by Provider: 10/19/17 21:00 Source: patient Mode of arrival: ambulatory Limitations: no limitations - History of Present Illness Initial Comments: This patient is an 86-year-old woman who presents to be evaluated for a constellation of symptoms that began 3 days ago with some sinus congestion and postnasal drip, followed by developing a sore throat, and then starting today in the afternoon a nonproductive cough. The patient also reports having had some low-grade temperature. She was concerned because her had recently been in the hospital and was put on an antibiotic after he developed a cough. The patient denies any purulent sputum. She is not having shortness of breath. The remainder the review of systems is negative. MD Complaint: cough, sore throat, nasal congestion -: days(s) Severity: moderate Quality: dull Consistency: constant Improves With: nothing Worsens With: other (Cough) Context: sick contacts Associated Symptoms: fever, nasal congestion, sore throat, cough Treatments Prior to Arrival: none - Related Data Home Medications Medication Instructions Recorded Confirmed amLODIPine BES/OLMESARTAN MED 1 tab PO HS 02/05/15 10/19/17 [Naomy 5-20 mg Tablet] Levothyroxine Sodium [Synthroid] 75 mcg PO DAILY 02/25/17 10/19/17 Previous Rx's Medication Instructions Recorded Promethazine 6.25MG/5Ml [Phenergan 5 ml PO Q4HR PRN #120 ml 10/19/17 Syrup] predniSONE 60 mg PO DAILY #30 tab 10/19/17 Allergies Allergy/AdvReac Type Severity Reaction Status Date / Time aspirin Allergy Rash/Hives Verified 10/19/17 20:23 Penicillins Allergy Rash/Hives Verified 10/19/17 20:23 Review of Systems ROS Statement: Those systems with pertinent positive or pertinent negative responses have been documented in the HPI. ROS Other: All systems not noted in ROS Statement are negative. Constitutional: Reports: fever. Denies: chills, weakness ENT: Reports: throat pain, congestion. Denies: ear pain Respiratory: Reports: cough. Denies: dyspnea, hemoptysis Cardiovascular: Denies: chest pain, palpitations, dyspnea on exertion, edema, syncope Gastrointestinal: Denies: abdominal pain, vomiting, diarrhea Genitourinary: Denies: dysuria Musculoskeletal: Denies: back pain Skin: Denies: rash Neurological: Denies: headache, weakness Past Medical History Past Medical History: Cancer, Hypertension, Thyroid Disorder Additional Past Medical History / Comment(s): breast cancer. No BP on left side, History of Any Multi-Drug Resistant Organisms: None Reported Past Surgical History: Breast Surgery, Joint Replacement Additional Past Surgical History / Comment(s): mastectomy thyroidectomy bilateral knee replacement, left hammer toe correction Past Psychological History: No Psychological Hx Reported Smoking Status: Never smoker Past Alcohol Use History: None Reported Past Drug Use History: None Reported General Exam Limitations: no limitations General appearance: alert, in no apparent distress ENT exam: Present: mucous membranes moist, other (There is mild injection of the pharynx) Neck exam: Present: normal inspection, full ROM Respiratory exam: Present: wheezes (Trace expiratory wheeze). Absent: respiratory distress, rales, rhonchi, stridor Cardiovascular Exam: Present: regular rate (Heart rate is 100 at my exam), normal rhythm, normal heart sounds. Absent: systolic murmur, diastolic murmur, rubs, gallop GI/Abdominal exam: Present: soft. Absent: distended, tenderness, guarding, rebound, rigid, mass Extremities exam: Present: normal inspection, normal capillary refill. Absent: pedal edema, calf tenderness Back exam: Present: normal inspection. Absent: CVA tenderness (R), CVA tenderness (L) Neurological exam: Present: alert Skin exam: Present: warm, dry, intact, normal color. Absent: rash Course Vital Signs 10/19/17 10/19/17 10/19/17 20:01 20:38 22:08 Temperature 100.1 F H 98.7 F Pulse Rate 117 H 99 Respiratory 18 20 18 Rate Blood Pressure 134/72 164/79 O2 Sat by Pulse 96 95 Oximetry Medical Decision Making - Lab Data Lab Results 10/19/17 Range/Units 21:08 Group A Strep Rapid Negative (Negative) - EKG Data -: EKG Interpreted by Me EKG shows normal: sinus rhythm, axis (Normal), intervals (Normal), QRS complexes (Normal), ST-T waves (Normal) Rate: tachycardia (Rate approximately 112 bpm) Interpretation: other (Possible old inferior infarct.) Disposition Clinical Impression: Bronchitis, Sinusitis Disposition: HOME SELF-CARE Condition: Good Instructions: Upper Respiratory Infection (ED), Acute Bronchitis (ED) Prescriptions: predniSONE 60 mg PO DAILY #30 tab Promethazine 6.25MG/5Ml [Phenergan Syrup] 5 ml PO Q4HR PRN #120 ml PRN Reason: Cough Is patient prescribed a controlled substance at d/c from ED?: No Referrals: Shravan Foss MD [Primary Care Provider] - 1-2 days
[2017-10-19] MEDS ORDERED: guaiFENesin-DM 100-10MG/5ML 10 ML CUP PO STA (21:45)
[2017-10-19] MEDS ORDERED: predniSONE 20 MG TAB PO STA (21:45)
[2017-10-19 22:09] VITALS: BP 164/79; PULSE 99; RESP 18; TEMP 98.7
== END 2017-10-19 22:15 | disposition home or self-care (01) ==
LOC: EC 19:51
DX: J40 Bronchitis, not specified as acute or chronic (principal); J32.9 Chronic sinusitis, unspecified; I10 Essential (primary) hypertension; E07.9 Disorder of thyroid, unspecified; Z85.3 Personal history of malignant neoplasm of breast; Z79.899 Other long term (current) drug therapy; Z88.0 Allergy status to penicillin; Z88.6 Allergy status to analgesic agent; Z96.653 Presence of artificial knee joint, bilateral; Z90.12 Acquired absence of left breast and nipple
CPT/HCPCS: 93005; 87081; 87430; 71046; 99284; J7512

== ENCOUNTER 2017-10-28 13:06 | Emergency (ER) | payer BC, MEDICARE ==
[2017-10-28] MEDS ORDERED: DEXAMETHASONE SOD PHOSPHATE 10 MG/ML 1 ML VIAL IV STA (13:30)
[2017-10-28] MEDS ORDERED: SODIUM CHLORIDE 0.9% 500 ML IV STA (13:30)
[2017-10-28] MEDS ORDERED: IPRATROPIUM-ALBUTEROL 3 ML NEB INHALATION STA (13:30)
--- NOTE | 2017-10-28 13:37 | ED ---
General Adult HPI - General Chief complaint: Upper Respiratory Infection Stated complaint: Cough Time Seen by Provider: 10/28/17 13:20 Source: patient, family, RN notes reviewed, old records reviewed Mode of arrival: ambulatory Limitations: no limitations - History of Present Illness Initial comments: 86-year-old female presents for reevaluation of cough. Patient's cough has been persistent for the past 9-10 days. She was seen in the emergency department prescribed a course of prednisone. This did not improve her symptoms. She was subsequently put on doxycycline and has been on this antibiotic for several days with no improvement. She was seen by her primary care physician. She does have positive sick contacts with similar cough. She complains of rhinorrhea and bilateral ear fullness. No sore throat. Cough is productive of yellow sputum. She denies significant dyspnea. Denies central chest pain. Denies lower extremity pain or swelling. No fever or chills. No nausea or vomiting. No history of CAD, heart failure, asthma or COPD. No smoking history. - Related Data Home Medications Medication Instructions Recorded Confirmed amLODIPine BES/OLMESARTAN MED 1 tab PO DAILY@1700 02/05/10/28/17 [Naomy 5-20 mg Tablet] Levothyroxine Sodium [Synthroid] 75 mcg PO DAILY 02/25/17 10/28/17 Previous Rx's Medication Instructions Recorded Albuterol Inhaler [Ventolin Hfa 1 - 2 puff INHALATION Q4HR PRN #1 10/28/17 Inhaler] inhaler guaiFENesin-Coden 100-10MG/5ML 5 - 10 ml PO Q6H PRN 3 Days #120 ml 10/28/17 [Robitussin AC] methylPREDNISolone Dose Pack 4 mg PO DIRECTED #21 package 10/28/17 [Medrol Dose Pack] Allergies Allergy/AdvReac Type Severity Reaction Status Date / Time aspirin Allergy Rash/Hives Verified 10/28/17 13:41 Penicillins Allergy Rash/Hives Verified 10/28/17 13:41 Review of Systems ROS Statement: Those systems with pertinent positive or pertinent negative responses have been documented in the HPI. ROS Other: All systems not noted in ROS Statement are negative. Past Medical History Past Medical History: Cancer, Hypertension, Thyroid Disorder Additional Past Medical History / Comment(s): breast cancer. No BP on left side, History of Any Multi-Drug Resistant Organisms: None Reported Past Surgical History: Breast Surgery, Joint Replacement Additional Past Surgical History / Comment(s): mastectomy thyroidectomy bilateral knee replacement, left hammer toe correction Past Psychological History: No Psychological Hx Reported Smoking Status: Never smoker Past Alcohol Use History: None Reported Past Drug Use History: None Reported General Exam Limitations: no limitations General appearance: alert, in no apparent distress Head exam: Present: atraumatic, normocephalic Eye exam: Present: normal appearance, PERRL ENT exam: Present: normal exam. Absent: TM's normal bilaterally (Right TM within normal limits, left TM obscured by cerumen) Neck exam: Present: normal inspection, full ROM. Absent: tenderness, meningismus Respiratory exam: Present: wheezes, rhonchi, prolonged expiratory, other ( Bronchospastic cough) Cardiovascular Exam: Present: normal rhythm, tachycardia GI/Abdominal exam: Present: soft. Absent: distended, tenderness, guarding, rebound Extremities exam: Present: normal inspection, normal capillary refill. Absent: pedal edema, calf tenderness Neurological exam: Present: alert, oriented X3, CN II-XII intact. Absent: motor sensory deficit Psychiatric exam: Present: normal affect, normal mood Skin exam: Present: warm, dry, intact. Absent: cyanosis, diaphoretic Course Vital Signs 10/28/17 10/28/17 10/28/17 13:10 13:19 14:00 Temperature 98.4 F Pulse Rate 118 H 112 H Respiratory 18 16 Rate Blood Pressure 144/78 O2 Sat by Pulse 96 Oximetry 10/28/17 14:12 Temperature Pulse Rate 104 H Respiratory Rate Blood Pressure O2 Sat by Pulse Oximetry EKG Findings - EKG Comments: EKG Findings:: EKG: Sinus rhythm with first-degree AV block, inferior infarct nonacute, rate of 99, OR interval 234, QRS duration 64, QTC 469signs of acute ischemia Medical Decision Making - Medical Decision Making 86-year-old presenting with persistent cough and sick contacts. Patient does describe some additional URI symptoms including ear fullness and rhinorrhea. Cough is productive of yellow sputum. Repeat chest x-ray is obtained, shows concern for retrocardiac pneumonia. Given the patient's age EKG and laboratory studies are obtained. EKG is normal sinus with no definitive signs of ischemia. CBC within normal limits with a normal white count. CMP and electrolytes are normal. Troponin and BNP are both negative. Patient is currently on doxycycline which is inappropriate treatment of community-acquired pneumonia. She will be continued on this. She will be given a steroid Dosepak for bronchospasm as well as albuterol. And cough medicine. She will follow-up with her primary care physician. - Lab Data Result diagrams: 10/28/17 13:35 10/28/17 13:35 Lab Results 10/28/17 10/28/17 10/28/17 Range/Units 13:35 13:35 13:35 WBC 9.6 (3.8-10.6) k/uL RBC 5.32 (3.80-5.40) m/uL Hgb 15.2 (11.4-16.0) gm/dL Hct 45.1 (34.0-46.0) % MCV 84.8 (80.0-100.0) fL MCH 28.6 (25.0-35.0) pg MCHC 33.8 (31.0-37.0) g/dL RDW 14.9 (11.5-15.5) % Plt Count 220 (150-450) k/uL Neutrophils % 72 % Lymphocytes % 18 % Monocytes % 5 % Eosinophils % 4 % Basophils % 0 % Neutrophils # 6.9 (1.3-7.7) k/uL Lymphocytes # 1.7 (1.0-4.8) k/uL Monocytes # 0.5 (0-1.0) k/uL Eosinophils # 0.4 (0-0.7) k/uL Basophils # 0.0 (0-0.2) k/uL PT (9.0-12.0) sec INR (<1.2) APTT (22.0-30.0) sec Sodium 142 (137-145) mmol/L Potassium 4.3 (3.5-5.1) mmol/L Chloride 103 (98-107) mmol/L Carbon Dioxide 26 (22-30) mmol/L Anion Gap 13 mmol/L BUN 17 (7-17) mg/dL Creatinine 0.70 (0.52-1.04) mg/dL Est GFR (CKD-EPI)AfAm >90 (>60 ml/min/1.73 sqM) Est GFR (CKD-EPI)NonAf 78 (>60 ml/min/1.73 sqM) Glucose 119 H (74-99) mg/dL Calcium 9.4 (8.4-10.2) mg/dL Magnesium 2.0 (1.6-2.3) mg/dL Total Bilirubin 0.5 (0.2-1.3) mg/dL AST 27 (14-36) U/L ALT 33 (9-52) U/L Alkaline Phosphatase 82 (38-126) U/L Total Creatine Kinase 51 (30-135) U/L CK-MB (CK-2) 1.1 (0.0-2.4) ng/mL CK-MB (CK-2) Rel Index 2.2 Troponin I <0.012 (0.000-0.034) ng/mL NT-Pro-B Natriuret Pep pg/mL Total Protein 6.6 (6.3-8.2) g/dL Albumin 4.2 (3.5-5.0) g/dL 10/28/17 10/28/17 Range/Units 13:35 13:35 WBC (3.8-10.6) k/uL RBC (3.80-5.40) m/uL Hgb (11.4-16.0) gm/dL Hct (34.0-46.0) % MCV (80.0-100.0) fL MCH (25.0-35.0) pg MCHC (31.0-37.0) g/dL RDW (11.5-15.5) % Plt Count (150-450) k/uL Neutrophils % % Lymphocytes % % Monocytes % % Eosinophils % % Basophils % % Neutrophils # (1.3-7.7) k/uL Lymphocytes # (1.0-4.8) k/uL Monocytes # (0-1.0) k/uL Eosinophils # (0-0.7) k/uL Basophils # (0-0.2) k/uL PT 10.0 (9.0-12.0) sec INR 1.0 (<1.2) APTT 20.7 L (22.0-30.0) sec Sodium (137-145) mmol/L Potassium (3.5-5.1) mmol/L Chloride (98-107) mmol/L Carbon Dioxide (22-30) mmol/L Anion Gap mmol/L BUN (7-17) mg/dL Creatinine (0.52-1.04) mg/dL Est GFR (CKD-EPI)AfAm (>60 ml/min/1.73 sqM) Est GFR (CKD-EPI)NonAf (>60 ml/min/1.73 sqM) Glucose (74-99) mg/dL Calcium (8.4-10.2) mg/dL Magnesium (1.6-2.3) mg/dL Total Bilirubin (0.2-1.3) mg/dL AST (14-36) U/L ALT (9-52) U/L Alkaline Phosphatase (38-126) U/L Total Creatine Kinase (30-135) U/L CK-MB (CK-2) (0.0-2.4) ng/mL CK-MB (CK-2) Rel Index Troponin I (0.000-0.034) ng/mL NT-Pro-B Natriuret Pep 73 pg/mL Total Protein (6.3-8.2) g/dL Albumin (3.5-5.0) g/dL Disposition Clinical Impression: Community acquired pneumonia Disposition: HOME SELF-CARE Condition: Good Instructions: Pneumonia (ED) Prescriptions: Albuterol Inhaler [Ventolin Hfa Inhaler] 1 - 2 puff INHALATION Q4HR PRN #1 inhaler PRN Reason: Shortness Of Breath guaiFENesin-Coden 100-10MG/5ML [Robitussin AC] 5 - 10 ml PO Q6H PRN 3 Days #120 ml PRN Reason: Cough methylPREDNISolone Dose Pack [Medrol Dose Pack] 4 mg PO DIRECTED #21 package Is patient prescribed a controlled substance at d/c from ED?: No Referrals: Shravan Foss MD [Primary Care Provider] - 1-2 days Time of Disposition: 14:42
[2017-10-28 13:50] LABS: Basophils % (A) 0 %; Eosinophils # (A) 0.4 k/uL (0-0.7); Eosinophils % (A) 4 %; HCT 45.1 % (34.0-46.0); HGB 15.2 gm/dL (11.4-16.0); Lymphocytes # (A) 1.7 k/uL (1.0-4.8); Lymphocytes % (A) 18 %; MCH 28.6 pg (25.0-35.0); MCHC 33.8 g/dL (31.0-37.0); MCV 84.8 fL (80.0-100.0); Mean Platelet Volume 7.1; Monocytes # (A) 0.5 k/uL (0-1.0); Monocytes % (A) 5 %; Neutrophils # (A) 6.9 k/uL (1.3-7.7); Neutrophils % (A) 72 %; Platelet Count 220 k/uL (150-450); RBC 5.32 m/uL (3.80-5.40); RDW 14.9 % (11.5-15.5); WBC 9.6 k/uL (3.8-10.6)
[2017-10-28 13:59] LABS: ALT 33 U/L (9-52); AST 27 U/L (14-36); Albumin 4.2 g/dL (3.5-5.0); Alkaline Phosphatase 82 U/L (38-126); Anion Gap 13 mmol/L; Blood Urea Nitrogen 17 mg/dL (7-17); Calcium 9.4 mg/dL (8.4-10.2); Carbon Dioxide 26 mmol/L (22-30); Chloride 103 mmol/L (98-107); Glucose 119 mg/dL (74-99); Potassium 4.3 mmol/L (3.5-5.1); Sodium 142 mmol/L (137-145); Total Bilirubin 0.5 mg/dL (0.2-1.3); Total Protein 6.6 g/dL (6.3-8.2)
[2017-10-28 14:03] LABS: Creatine Kinase 51 U/L (30-135)
--- NOTE | 2017-10-28 14:05 | XR ---
EXAMINATION TYPE: XR chest 2V DATE OF EXAM: 10/28/2017 COMPARISON: 10/19/2017 HISTORY: Cough and congestion TECHNIQUE: Frontal and lateral views of the chest are obtained. FINDINGS: Chronic increased interstitial lung markings are seen. There is an increased retrocardiac opacity suspicious for pneumonia. This is best seen on the lateral image. Findings are superimposed u hilda pulmonary hyperinflation suggesting an COPD with increased retrosternal airspace. The cardiac si lhouette size is within normal limits. The osseous structures are intact. There is a scoliotic curv ature of the thoracolumbar spine with tortuosity of the descending thoracic aorta unchanged from the prior. IMPRESSION: Retrocardiac opacity seen best on the lateral image suspicious for pneumonia.
[2017-10-28 14:16] LABS: Creatine Kinase MB 1.1 ng/mL (0.0-2.4); Troponin I <0.012 ng/mL (0.000-0.034)
[2017-10-28 14:30] LABS: Partial Thromboplastin Time 20.7 sec (22.0-30.0)
[2017-10-28 15:08] VITALS: BP 151/72; PULSE 94; RESP 18
[2017-10-28 15:10] VITALS: TEMP 98.2
== END 2017-10-28 15:11 | disposition home or self-care (01) ==
LOC: EC 13:06
DX: J18.9 Pneumonia, unspecified organism (principal); I10 Essential (primary) hypertension; E07.9 Disorder of thyroid, unspecified; Z85.3 Personal history of malignant neoplasm of breast; Z96.653 Presence of artificial knee joint, bilateral; Z79.899 Other long term (current) drug therapy; Z88.6 Allergy status to analgesic agent; Z88.0 Allergy status to penicillin
CPT/HCPCS: 36415; 94640; 93005; 83880; 80053; 82550; 82553; 83735; 84484; 85025; 85610; 85730; 71046; 99284; 96374; 96361; J1100

== ENCOUNTER 2018-08-07 08:57 | Emergency (ER) | payer MEDICARE, BC ==
[2018-08-07] MEDS ORDERED: IPRATROPIUM-ALBUTEROL 3 ML NEB INHALATION STA (09:31)
--- NOTE | 2018-08-07 10:03 | ED ---
URI HPI - General Chief Complaint: Upper Respiratory Infection Stated Complaint: Cough Time Seen by Provider: 08/07/18 09:21 Source: patient, RN notes reviewed Mode of arrival: ambulatory Limitations: no limitations - History of Present Illness Initial Comments: 87-year-old female presents emergency Department chief complaint of cough. Patient states she's had a slight cough last 2 weeks. Patient did see PCP and told that she had acute bronchitis was placed on Cipro 250 twice a day. Patient states it did not help. Patient states she still has a is mildly productive. No fever or chills. Denies any nasal congestion, sore throat, headache, dizziness, chest pain, nausea vomiting. Patient has no history of asthma or COPD. - Related Data Home Medications Medication Instructions Recorded Confirmed amLODIPine BES/OLMESARTAN MED 1 tab PO DAILY@1700 02/05/15 08/07/18 [Naomy 5-20 mg Tablet] Levothyroxine Sodium [Synthroid] 75 mcg PO DAILY 02/25/17 08/07/18 Ciprofloxacin HCl [Cipro] 250 mg PO Q12HR 08/07/18 08/07/18 D-Methorphan/PE/Acetaminophen 2 cap PO Q4H PRN 08/07/18 08/07/18 [Vicks Dayquil Liquicaps] Meloxicam [Mobic] 7.5 mg PO DAILY PRN 08/07/18 08/07/18 Previous Rx's Medication Instructions Recorded methylPREDNISolone [Medrol Dose 4 mg PO DIRECTED #1 pack 08/07/18 Pack] Allergies Allergy/AdvReac Type Severity Reaction Status Date / Time aspirin Allergy Rash/Hives Verified 08/07/18 09:06 Penicillins Allergy Rash/Hives Verified 08/07/18 09:06 Review of Systems ROS Statement: Those systems with pertinent positive or pertinent negative responses have been documented in the HPI. ROS Other: All systems not noted in ROS Statement are negative. Past Medical History Past Medical History: Cancer, Hypertension, Thyroid Disorder Additional Past Medical History / Comment(s): breast cancer. No BP on left side, History of Any Multi-Drug Resistant Organisms: None Reported Past Surgical History: Breast Surgery, Joint Replacement Additional Past Surgical History / Comment(s): mastectomy thyroidectomy bilateral knee replacement, left hammer toe correction Past Psychological History: No Psychological Hx Reported Smoking Status: Never smoker Past Alcohol Use History: None Reported Past Drug Use History: None Reported General Exam Limitations: no limitations General appearance: alert, in no apparent distress Head exam: Present: atraumatic, normocephalic, normal inspection Eye exam: Present: normal appearance, PERRL, EOMI. Absent: scleral icterus, conjunctival injection, periorbital swelling ENT exam: Present: normal exam, normal oropharynx, mucous membranes moist, TM's normal bilaterally, normal external ear exam Neck exam: Present: normal inspection, full ROM. Absent: tenderness, meningismus, lymphadenopathy Respiratory exam: Present: wheezes (Faint inspiratory). Absent: normal lung sounds bilaterally, respiratory distress, rales, rhonchi, stridor Cardiovascular Exam: Present: regular rate, normal rhythm, normal heart sounds. Absent: systolic murmur, diastolic murmur, rubs, gallop, clicks GI/Abdominal exam: Present: soft, normal bowel sounds. Absent: distended, tenderness, guarding, rebound, rigid Course Vital Signs 08/07/18 08/07/18 08/07/18 09:04 09:36 09:43 Temperature 98.2 F Pulse Rate 95 78 84 Respiratory 18 Rate Blood Pressure 130/75 O2 Sat by Pulse 98 Oximetry Medical Decision Making - Medical Decision Making 87-year-old female sent for cough. Chest x-ray obtained no Money. Patient is in no distress. Vitals are stable. This is residual cough from acute bronchitis. Patient will finish her course of antibiotics and will be given a short course of tapering steroids. Disposition Clinical Impression: Bronchitis Disposition: HOME SELF-CARE Condition: Stable Instructions (If sedation given, give patient instructions): Upper Respiratory Infection (ED) Additional Instructions: Please return to the Emergency Department if symptoms worsen or any other concerns. Prescriptions: methylPREDNISolone [Medrol Dose Pack] 4 mg PO DIRECTED #1 pack Is patient prescribed a controlled substance at d/c from ED?: No Referrals: Shravan Foss MD [Primary Care Provider] - 1-2 days Time of Disposition: 11:11
--- NOTE | 2018-08-07 10:07 | XR ---
EXAMINATION TYPE: XR chest 2V DATE OF EXAM: 08/07/2018 COMPARISON: Chest x-ray October 28, 2017 HISTORY: Cough for a few weeks. TECHNIQUE: Frontal and lateral views of the chest are obtained. FINDINGS: There is chronic parenchymal change without suspicious focal air space opacity, pleural ef fusion, or pneumothorax seen. The cardiac silhouette size is within normal limits with atherosclerot ic and ectatic aorta. The osseous structures are demineralized. Underlying S-shaped scoliosis is re demonstrated. IMPRESSION: Chronic changes without new suspicious acute pulmonary process currently.
[2018-08-07 11:23] VITALS: BP 126/73; PULSE 78; RESP 19; TEMP 98.6
== END 2018-08-07 11:23 | disposition home or self-care (01) ==
LOC: EC 08:57
DX: J40 Bronchitis, not specified as acute or chronic (principal); I10 Essential (primary) hypertension; E07.9 Disorder of thyroid, unspecified; Z85.3 Personal history of malignant neoplasm of breast; Z79.890 Hormone replacement therapy; Z79.899 Other long term (current) drug therapy; Z88.0 Allergy status to penicillin; Z88.6 Allergy status to analgesic agent; Z96.653 Presence of artificial knee joint, bilateral
CPT/HCPCS: 71046; 94640; 99283

== ENCOUNTER 2019-05-18 09:49 | Emergency (ER) | payer BC ==
[2019-05-18 09:58] VITALS: BP 147/83; PULSE 90; RESP 18; TEMP 98
--- NOTE | 2019-05-18 10:59 | ED ---
Skin/Abscess/FB HPI - General Chief complaint: Skin/Abscess/Foreign Body Stated complaint: infected bellybutton Time Seen by Provider: 05/18/19 10:32 Source: patient Mode of arrival: ambulatory Limitations: no limitations - History of Present Illness Initial comments: Patient is an 88-year-old female presenting to the emergency Department with complaints of drainage from a cyst on her belly button. Patient states she's had this cyst for many years and is always slightly erythematous. Patient states today she woke up and noticed she is having drainage from the cyst. Patient reports the drainage has a bad smell to it. Patient denies any fever, chills, nausea, vomiting. Patient has no other complaints at this time. Upon arrival to ER, her vital signs are stable. - Related Data Home Medications Medication Instructions Recorded Confirmed amLODIPine BES/OLMESARTAN MED 1 tab PO DAILY@1700 02/05/15 08/07/18 [Naomy 5-20 mg Tablet] Levothyroxine Sodium [Synthroid] 75 mcg PO DAILY 02/25/17 08/07/18 Ciprofloxacin HCl [Cipro] 250 mg PO Q12HR 08/07/18 08/07/18 D-Methorphan/PE/Acetaminophen 2 cap PO Q4H PRN 08/07/18 08/07/18 [Vicks Dayquil Liquicaps] Meloxicam [Mobic] 7.5 mg PO DAILY PRN 08/07/18 08/07/18 Previous Rx's Medication Instructions Recorded methylPREDNISolone [Medrol Dose 4 mg PO DIRECTED #1 pack 08/07/18 Pack] Allergies Allergy/AdvReac Type Severity Reaction Status Date / Time aspirin Allergy Rash/Hives Verified 05/18/19 09:58 Penicillins Allergy Rash/Hives Verified 05/18/19 09:58 Review of Systems ROS Statement: Those systems with pertinent positive or pertinent negative responses have been documented in the HPI. ROS Other: All systems not noted in ROS Statement are negative. Past Medical History Past Medical History: Cancer, Hypertension, Thyroid Disorder Additional Past Medical History / Comment(s): breast cancer. No BP on left side, History of Any Multi-Drug Resistant Organisms: None Reported Past Surgical History: Breast Surgery, Joint Replacement Additional Past Surgical History / Comment(s): mastectomy thyroidectomy bilateral knee replacement, left hammer toe correction Past Psychological History: No Psychological Hx Reported Smoking Status: Never smoker Past Alcohol Use History: None Reported Past Drug Use History: None Reported General Exam - General Exam Comments Initial Comments: GENERAL: Well-appearing, well-nourished and in no acute distress. HEAD: Atraumatic, normocephalic. EYES: Pupils equal round and reactive to light, extraocular movements intact, sclera anicteric, conjunctiva are normal. ENT: Moist mucous membranes. NECK: Normal range of motion, supple without lymphadenopathy or JVD. LUNGS: Breath sounds clear to auscultation bilaterally and equal. No wheezes rales or rhonchi. HEART: Regular rate and rhythm without murmurs, rubs or gallops. ABDOMEN: Soft, nontender, normoactive bowel sounds. No guarding, no rebound. No masses appreciated. : Deferred EXTREMITIES: Normal range of motion, no pitting or edema. No clubbing or cyanosis. NEUROLOGICAL: Normal speech, normal gait. PSYCH: Normal mood, normal affect. SKIN: Warm, Dry, normal turgor, no rashe. Patient has a small sebaceous cyst on her umbilical region. Thick yellow drainage is coming from the cyst. No signs of infection. Limitations: no limitations Course Vital Signs 05/18/19 09:56 Temperature 98.0 F Pulse Rate 90 Respiratory 18 Rate Blood Pressure 147/83 O2 Sat by Pulse 98 Oximetry Medical Decision Making - Medical Decision Making Patient is an 88-year-old female presenting with a sebaceous cyst on her umbilical region. The drainage was cultured and is pending at this time. Patient's vital signs are stable. The cyst was drained, cleaned and topical antibiotic was placed. Patient will follow up with PCP next week. Patient will use bacitracin twice a day on the area for a week. Patient is agreement with this plan. Disposition Clinical Impression: Sebaceous cyst Disposition: HOME SELF-CARE Condition: Stable Instructions (If sedation given, give patient instructions): Cyst (ED) Additional Instructions: Please return to the Emergency Department if symptoms worsen or any other concerns. Follow-up with PCP if symptoms persist Apply bacitracin twice a day. Clean with soap and water once a day. Is patient prescribed a controlled substance at d/c from ED?: No Referrals: Shravan Foss MD [Primary Care Provider] - 1-2 days
== END 2019-05-18 11:18 | disposition home or self-care (01) ==
LOC: EC 09:49
DX: L72.3 Sebaceous cyst (principal); I10 Essential (primary) hypertension; E07.9 Disorder of thyroid, unspecified; Z88.0 Allergy status to penicillin; Z88.6 Allergy status to analgesic agent; Z79.890 Hormone replacement therapy; Z79.899 Other long term (current) drug therapy; Z85.3 Personal history of malignant neoplasm of breast; Z90.12 Acquired absence of left breast and nipple
CPT/HCPCS: 87070; 87205; 99284